=== PATIENT | female | born 1930 ===

== ENCOUNTER 2018-02-15 06:53 | Day surgery (SDC) | payer MEDICARE, MEDICAID ==
[2018-02-13 10:10] VITALS: BMI 30.1
[2018-02-15] MEDS ORDERED: Lactated Ringer's 1,000 ML IV ONE (08:30)
[2018-02-15] MEDS ORDERED: Midazolam 2 MG/2 ML VIAL ONE (09:14)
[2018-02-15] MEDS ORDERED: Propofol 10 mg/ml Inj (20 ML) ONE (09:25)
[2018-02-15] MEDS ORDERED: Etomidate 20 mg/10ml Inj IV ONE (09:25)
[2018-02-15] MEDS ORDERED: ePHEDrine 50 mg/ml Inj ONE (09:31)
[2018-02-15] MEDS ORDERED: Dexamethasone 4 mg/1 ml IVP PRN (10:00)
[2018-02-15 12:31] VITALS: RESP 18; TEMP 97; O2SAT 95
[2018-02-15 15:43] VITALS: BP 133/56; PULSE 57
--- NOTE | 2018-02-15 20:29 | OP ---
PROCEDURE DATE: 02/15/2018 PREOPERATIVE DIAGNOSES: Postmenopausal bleed, thickened endometrium. 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 SURGEON: Erika Perera MD TYPE OF ANESTHESIA: General. ANESTHESIA ADMINISTERED BY: Gabriela You MD ESTIMATED BLOOD LOSS: Minimal. FLUIDS: The patient received approximately 500 mL of D5 LR intraoperatively. OPERATIVE FINDINGS: Normal external female genitalia, atrophic vagina, no adnexal masses. Hysteroscopic findings revealed a large anterior wall myoma. Photographs were taken for documentation. DESCRIPTION OF PROCEDURE: After informed consent was obtained, the patient was taken to the operating room where she was given general anesthesia. She was then prepped and draped in the normal sterile fashion. A weighted speculum was inserted in the vagina. The cervix was visualized and dilated. The hysteroscope was then inserted in the uterine cavity. The MyoSure device was activated and the fibroid was resected. The procedure was then terminated. A sharp curettage was performed. Endometrial curettings were sent to Pathology and the patient was taken to the recovery room in awake and stable condition. Erika Perera MD
== END 2018-02-15 14:10 | disposition home or self-care (01) ==
LOC: H.OPSURG 06:53
PROVIDERS: ATTEND Obstetrics & Gynecology Gynecology
DX: N95.0 Postmenopausal bleeding (principal); I10 Essential (primary) hypertension; M19.90 Unspecified osteoarthritis, unspecified site; D21.9 Benign neoplasm of connective and other soft tissue, unspecified; Z78.0 Asymptomatic menopausal state; N85.8 Other specified noninflammatory disorders of uterus
CPT/HCPCS: 58558; 88305; J2001; J2250; J2405; J2704; J3010; J7030; J7120